=== PATIENT | female | born 1995 | race Caucasian/White ===

== ENCOUNTER 2016-05-04 04:38 | Emergency (ER) | payer OTHER ==
[~2016-05-04] VITALS: Ht 162.6 cm; Wt 55.0 kg
[~2016-05-04 04:38] MED LIST: AVIANE1 EACH PO; CENTRUM COMPLE1 EACH PO; LUTERA1 EAC1 PO
[2016-05-04] MEDS ORDERED: PREDNISONE10 MG PO (06:00)
[2016-05-04 06:12] VITALS: BP 131/96
== END 2016-05-04 06:13 | disposition home or self-care (01) ==
LOC: EME 04:38
DX: T78.40XA Allergy, unspecified, initial encounter (principal); L50.0 Allergic urticaria; Z88.2 Allergy status to sulfonamides; J45.909 Unspecified asthma, uncomplicated
CPT/HCPCS: 99281; 99283; J7512

== ENCOUNTER 2017-07-23 21:13 | Emergency (ER) | payer OTHER ==
[~2017-07-23] VITALS: Ht 160 cm; Wt 52.3 kg
[~2017-07-23 21:13] MED LIST changes: +PREDNISONE10 MG PO
[2017-07-23 22:20] VITALS: BP 117/66
== END 2017-07-23 22:21 | disposition home or self-care (01) ==
LOC: EME 21:13
DX: O99.511 Diseases of the respiratory system complicating pregnancy, first trimester (principal); J06.9 Acute upper respiratory infection, unspecified; J45.909 Unspecified asthma, uncomplicated; O99.341 Other mental disorders complicating pregnancy, first trimester; F41.9 Anxiety disorder, unspecified; O99.331 Smoking (tobacco) complicating pregnancy, first trimester; F17.200 Nicotine dependence, unspecified, uncomplicated; Z86.61 Personal history of infections of the central nervous system; Z88.2 Allergy status to sulfonamides
CPT/HCPCS: 84702; 99281; 99284